=== PATIENT | male | born 1995 | race African-American/Black ===

== ENCOUNTER 2022-11-30 09:59 | Emergency (ER) | payer OTHER ==
[~2022-11-30] VITALS: Ht 190.5 cm; Wt 68.2 kg
[2022-11-30 10:35] VITALS: BP 142/82; PULSE 125; RESP 22
== END 2022-11-30 11:38 | disposition home or self-care (01) ==
LOC: EMS 10:01
DX: F19.10 Other psychoactive substance abuse, uncomplicated (principal); F12.90 Cannabis use, unspecified, uncomplicated; F15.90 Other stimulant use, unspecified, uncomplicated
CPT/HCPCS: 99283; Z7502

== ENCOUNTER 2023-05-10 10:01 | Inpatient (IN) | payer OTHER, MEDICAID ==
[~2023-05-10] VITALS: Ht 188 cm; Wt 69.3 kg
[2023-05-10] MEDS ORDERED: HALOPERIDOL LACTATE 5 MG/ML VIAL IM ONE (13:00)
[2023-05-10] MEDS ORDERED: LORazepam 2 MG/ML VIAL IM ONE (13:00)
[2023-05-10] MEDS ORDERED: DiphenhydrAMINE HCL 50 MG/ML VIAL IM ONE (13:00)
[2023-05-10] MEDS ORDERED: ZOLPIDEM TARTRATE 10 MG TABLET PO PRN (14:15)
[2023-05-10 15:40] LABS: COVID AG,FIA SOURCE NASAL SWAB
[2023-05-10 15:44] LABS: BASOPHILS % (AUTO) 0.8 % (0.0-2.0); EOSINOPHILS % (AUTO) 3.3 % (1.0-6.0); HEMATOCRIT 39.3 % (41-53); HEMOGLOBIN 12.8 g/dL (13.5-17.5); LYMPHOCYTES # (AUTO) 1.7 K/uL (1.0-4.8); LYMPHOCYTES % (AUTO) 21.2 % (22.0-44.0); MEAN CORPUSCULAR HEMOGLOBIN 28.1 pg (26.0-34.0); MEAN CORPUSCULAR HGB CONC 32.6 G/dL (31.0-37.0); MEAN CORPUSCULAR VOLUME 86 fL (80-100); MONOCYTES # (AUTO) 0.7 K/uL (0.1-1.0); MONOCYTES % (AUTO) 9.1 % (2.0-9.0); NEUTROPHILS # (AUTO) 5.3 K/uL (1.8-7.7); NEUTROPHILS % (AUTO) 65.6 % (40.0-70.0); PLATELET COUNT (AUTO) 278 K/uL (150-450); RED BLOOD CELL COUNT(AUTO) 4.55 MIL/uL (4.50-5.90); RED CELL DISTRIBUTION WIDTH 12.4 % (11.5-14.5)
[2023-05-10 16:00] LABS: ANION GAP 4 mmol/L (8-16); CALCIUM, TOTAL 9.3 mg/dL (8.8-10.5); CARBON DIOXIDE 30 mmol/L (22-29); CHLORIDE 102 mmol/L (98-107); CREATININE 0.82 mg/dL (0.60-1.30); GLOMERULAR FILTR. RATE CALC > 60 mL/min (>60); GLUCOSE,RANDOM 74 mg/dL (70-110); POTASSIUM 3.5 mmol/L (3.5-5.1); SODIUM SERUM 136 mmol/L (136-145); UREA NITROGEN, BLOOD 12 mg/dL (7-18)
[2023-05-10 16:04] LABS: ALANINE AMINOTRANSFERASE 70 U/L (12-78); ALBUMIN 3.5 g/dL (3.4-5.0); ALKALINE PHOSPHATASE 129 U/L (46-116); ASPARTATE AMINOTRANSFERASE 70 U/L (15-37); BILIRUBIN,TOTAL 0.7 mg/dL (0.1-1.0); TOTAL PROTEIN, SERUM 8.6 g/dL (6.4-8.2)
[2023-05-10 16:04] LABS: SARS-COV2 (COVID) ANTIGEN,FIA Negative (Negative)
[2023-05-10 16:11] LABS: ALCOHOL, BLOOD (SERUM) < 3 mg/dL (0-10)
[2023-05-10 18:04] LABS: APPEARANCE,URINE CLEAR (CLEAR); BILIRUBIN,URINE NEGATIVE (NEGATIVE); COLOR,URINE LIGHT YELLOW (YELLOW); GLUCOSE, URINE (UA) NEGATIVE (NEGATIVE); KETONES,URINE NEGATIVE (NEGATIVE); LEUKOCYTE ESTERASE ,URINE NEGATIVE (NEGATIVE); NITRATE,URINE NEGATIVE (NEGATIVE); OCCULT BLOOD,URINE NEGATIVE (NEGATIVE); PH,URINE 6.5 (5.0-8.0); PH,URINE DRUG SCREEN 6.5 (5.0-8.0); PROTEIN,URINE NEGATIVE (NEGATIVE); SPECIFIC GRAVITIY, URINE 1.018 (1.003-1.030); UROBILINOGEN,URINE <=1.0 mg/dL (<=1.0)
[2023-05-10 18:10] LABS: ALCOHOL, URINE DRUG SCREEN NEGATIVE (NEGATIVE); AMPHET/METH SCREEN,URINE POSITIVE (NEGATIVE); BARBITURATE SCREEN, URINE NEGATIVE (NEGATIVE); BENZODIAZEPINES SCREEN,URINE NEGATIVE (NEGATIVE); CANNABINOID SCREEN,URINE POSITIVE (NEGATIVE); COCAINE SCREEN,URINE NEGATIVE (NEGATIVE); METHADONE SCREEN, URINE NEGATIVE (NEGATIVE); OPIATE SCREEN,URINE NEGATIVE (NEGATIVE); PHENCYCLIDINE SCREEN,URINE NEGATIVE (NEGATIVE)
[2023-05-11] MEDS ORDERED: IBUPROFEN 600 MG TABLET PO ONE (14:15)
[2023-05-11] MEDS ORDERED: SULFAMETHOX/TRIMETH DS 800-160 MG/TABLET PO ONE (14:30)
[2023-05-11] MEDS ORDERED: CEPHALEXIN MONOHYDRATE 500 MG CAPSULE PO ONE (14:30)
[2023-05-11] MEDS: LORazepam 2 MG TABLET PO PRN (14:37)
[2023-05-11 17:25] VITALS: BP 124/69; PULSE 91; RESP 18; TEMP 97.6; O2SAT 98
[2023-05-11] MEDS ORDERED: INFLUENZA VIRUS VACCINE QVS 2023-24 (6MO+)/PF 60 MCG/0.5 ML SYRINGE IM. ONE (17:45)
[2023-05-11 18:05] VITALS: BP 124/69; PULSE 91; RESP 18; TEMP 97.6
[2023-05-12 08:23] VITALS: BP 145/89; PULSE 109; RESP 20; TEMP 98.2; O2SAT 99
[2023-05-12] MEDS: CEPHALEXIN MONOHYDRATE 500 MG CAPSULE PO SCH ×2 (08:31→17:05)
[2023-05-12] MEDS: SULFAMETHOX/TRIMETH DS 800-160 MG/TABLET PO SCH ×2 (08:41→17:05)
[2023-05-12] MEDS: IBUPROFEN 600 MG TABLET PO PRN (12:59)
[2023-05-12] MEDS ORDERED: CloNIDine HCL 0.1 MG TABLET PO PRN (15:45)
[2023-05-12] MEDS ORDERED: ACETAMINOPHEN 325 MG TABLET PO PRN (15:45)
[2023-05-12] MEDS ORDERED: BACITRACIN 28 GM OINTMENT TP PRN (15:45)
[2023-05-12] MEDS ORDERED: ONDANSETRON HCL 4 MG TABLET PO PRN (15:45)
[2023-05-12] MEDS ORDERED: OMEPRAZOLE 20 MG CAPSULE PO PRN (15:45)
[2023-05-12] MEDS ORDERED: LOPERAMIDE HCL 2 MG CAPSULE PO PRN (15:45)
[2023-05-12] MEDS ORDERED: MAG HYDROX/ALUMINUM HYD/SIMETH ES 30 ML SUSPENSION UDCUP PO PRN (15:45)
[2023-05-12] MEDS ORDERED: BENZOCAINE/MENTHOL LOZENGE PO PRN (15:45)
[2023-05-12] MEDS ORDERED: DOCUSATE SODIUM 100 MG CAPSULE PO PRN (15:45)
[2023-05-12] MEDS ORDERED: ALBUTEROL SULFATE HFA 90 MCG/PUFF 8 GM INHALER IH PRN (15:45)
[2023-05-12] MEDS ORDERED: PETROLATUM,WHITE 28 GM JELLY TP PRN (15:45)
[2023-05-12] MEDS ORDERED: MAGNESIUM HYDROXIDE SUSPENSION 30 ML UDCUP PO PRN (15:45)
[2023-05-12] MEDS: LORazepam 2 MG TABLET PO PRN (17:05)
[2023-05-12] MEDS: HALOPERIDOL 5 MG TABLET PO PRN (17:06)
[2023-05-12 20:26] VITALS: BP 118/76; PULSE 92; RESP 18; TEMP 97.9; O2SAT 98
[2023-05-13] MEDS: IBUPROFEN 600 MG TABLET PO PRN ×2 (06:24→16:39)
[2023-05-13] MEDS: CEPHALEXIN MONOHYDRATE 500 MG CAPSULE PO SCH ×2 (08:26→16:39)
[2023-05-13] MEDS: SULFAMETHOX/TRIMETH DS 800-160 MG/TABLET PO SCH ×2 (08:26→16:39)
[2023-05-13 08:39] VITALS: BP 142/89; PULSE 100; RESP 18; TEMP 97.1; O2SAT 99
[2023-05-13] MEDS: LORazepam 2 MG TABLET PO PRN (16:39)
[2023-05-13] MEDS: HALOPERIDOL 5 MG TABLET PO PRN (16:39)
[2023-05-13 16:40] VITALS: RESP 18
[2023-05-13 17:39] VITALS: RESP 18
== END 2023-05-13 18:00 | DRG 885 ==
LOC: EMS 10:01 → B3A 05-11 13:17
PROVIDERS: ADMIT Psychiatry & Neurology Psychiatry; ATTEND Psychiatry & Neurology Psychiatry
DX: F20.9 Schizophrenia, unspecified (principal); F15.129 Other stimulant abuse with intoxication, unspecified; F41.9 Anxiety disorder, unspecified; G47.00 Insomnia, unspecified; S61.219A Laceration without foreign body of unspecified finger without damage to nail, initial encounter; K59.00 Constipation, unspecified; F10.90 Alcohol use, unspecified, uncomplicated; Z20.822 Contact with and (suspected) exposure to COVID-19; F32.A Depression, unspecified; X58.XXXA Exposure to other specified factors, initial encounter; Y93.89 Activity, other specified; Y92.89 Other specified places as the place of occurrence of the external cause; Y99.8 Other external cause status
CPT/HCPCS: 80053; 80307; 81003; 85025; 99285; G0480